=== PATIENT | male | born 1955 | race Caucasian/White ===

== ENCOUNTER 2017-02-12 19:33 | Inpatient (IN) | payer OTHER ==
[2017-02-12] MEDS ORDERED: ONDANSETRON 4 MG INJ IV (22:00)
[2017-02-12] MEDS ORDERED: ACETAMINOPHEN 325 MG TAB PO (22:00)
[2017-02-12] MEDS ORDERED: GLUCOSE GEL 15 GRAM TUBE PO ×2 (23:30)
[2017-02-12] MEDS ORDERED: DEXTROSE 50% 50 ML SYRINGE IV ×2 (23:30)
[2017-02-12] MEDS ORDERED: GLUCOSE GEL 15 GRAM TUBE BUCCAL (23:30)
[2017-02-12] MEDS ORDERED: GLUCAGON 1 MG INJ IM (23:30)
[2017-02-12] MEDS: SOD CHLORIDE 0.9% 1,000 ML IV (23:45)
[2017-02-12 23:53] LABS: HEMOGLOBIN A1C 7.6 % (0-5.9)
[2017-02-13] MEDS: ACCU-CHEK XX (01:44)
[2017-02-13 06:53] LABS: ADD MAN DIFF? NO
[2017-02-13 06:57] LABS: WHITE BLOOD COUNT 7.1 10^3/ul (4.8-10.8)
[2017-02-13 06:57] LABS: BASOPHILS % 0.4 % (0.0-2.0); EOSINOPHILS # 0.3 10^3/ul (0.0-0.5); EOSINOPHILS % 4.8 % (0.0-7.0); HEMOGLOBIN 12.4 g/dl (14.0-18.0); LYMPHOCYTES # 2.1 10^3/ul (0.8-2.9); LYMPHOCYTES % 29.6 % (15.0-51.0); MEAN CORPUSCULAR HEMOGLOBIN 30.6 pg (29.0-33.0); MEAN CORPUSCULAR HGB CONC 32.6 g/dl (32.0-37.0); MEAN CORPUSCULAR VOLUME 93.8 fl (82.0-101.0); MEAN PLATELET VOLUME 11.4 fl (7.4-10.4); MONOCYTE # 0.6 10^3/ul (0.3-0.9); MONOCYTES % 7.9 % (0.0-11.0); NEUTROPHILS % 57.2 % (39.0-77.0); PLATELET COUNT 139 10^3/UL (140-415); POSITIVE DIFF @See below; RED BLOOD COUNT 4.05 10^6/ul (4.70-6.10); RED CELL DISTRIBUTION WIDTH 12.6 % (11.5-14.5)
[2017-02-13] MEDS ORDERED: glipiZIDE (XL) 5 MG TAB PO (07:25)
[2017-02-13 07:27] LABS: ALANINE AMINOTRANSFERASE 42 IU/L (13-69); ALBUMIN 3.8 g/dl (3.3-4.9); ALBUMIN/GLOBULIN RATIO 1.22; ALKALINE PHOSPHATASE 71 IU/L (42-121); ANION GAP 19 (8-16); ASPARTATE AMINO TRANSFERASE 28 IU/L (15-46); BILIRUBIN,INDIRECT 0.4 mg/dl (0-1.1); BILIRUBIN,TOTAL 0.4 mg/dl (0.2-1.3); BLOOD UREA NITROGEN 35 mg/dl (7-20); CALCIUM 9.3 mg/dl (8.4-10.2); CARBON DIOXIDE 25 mmol/L (21-31); CHLORIDE 104 mmol/L (97-110); CREATININE 1.81 mg/dl (0.61-1.24); GLUCOSE 175 mg/dl (70-220); POTASSIUM 5.2 mmol/L (3.5-5.1); SODIUM 143 mmol/L (135-144); TOTAL PROTEIN 6.9 g/dl (6.1-8.1)
[2017-02-13] MEDS ORDERED: metFORMIN (XR) 500 MG TAB PO (07:55)
[2017-02-13] MEDS ORDERED: NON-FORMULARY/PATIENT OWN MED (Meloxicam* 15 MG) PO (09:00)
[2017-02-13] MEDS: PIOGLITAZONE 30 MG TAB PO (09:26)
[2017-02-13] MEDS: GABAPENTIN 300 MG CAP PO ×2 (09:27→13:03)
[2017-02-13] MEDS: traMADol 50 MG TAB PO ×2 (09:32→20:15)
[2017-02-13] MEDS: INSULIN ASPART [NOVOLOG] 3 ML PEN SC ×4 (09:42→20:30)
[2017-02-13] MEDS ORDERED: MECLIZINE 12.5 MG TAB PO (11:30)
[2017-02-13] MEDS: MELOXICAM 15 MG TAB PO (13:03)
[2017-02-13] MEDS: SOD CHLORIDE 0.9% 1,000 ML IV (13:04)
[2017-02-13 19:28] LABS: ADD UMIC NO; UR ASCORBIC ACID NEGATIVE (NEGATIVE); UR BILIRUBIN (Dip) NEGATIVE (NEGATIVE); UR BLOOD (Dip) NEGATIVE (NEGATIVE); UR CLARITY CLEAR (CLEAR); UR COLOR YELLOW (YELLOW); UR GLUCOSE (Dip) NEGATIVE (NEGATIVE); UR KETONES (Dip) NEGATIVE (NEGATIVE); UR LEUKOCYTE ESTERASE (Dip) NEGATIVE Leu/ul (NEGATIVE); UR NITRITE (Dip) NEGATIVE (NEGATIVE); UR SPECIFIC GRAVITY (Dip) 1.011 (1.003-1.030); UR TOTAL PROTEIN (Dip) NEGATIVE (NEGATIVE); UR UROBILINOGEN (Dip) NEGATIVE (NEGATIVE)
[2017-02-13 19:46] LABS: CREATININE,URINE RANDOM 48.17 mg/dl (20-370)
[2017-02-13 19:46] LABS: SODIUM,URINE RANDOM 126 mmol/L (30-90)
[2017-02-13] MEDS: DULOXETINE 30 MG CAP DR PO (20:14)
[2017-02-13] MEDS: AMITRIPTYLINE 25 MG TAB PO (20:15)
[2017-02-13] MEDS: INSULIN DETEMIR [LEVEMIR] 3ML CART SC (20:30)
[2017-02-13] MEDS ORDERED: MELATONIN 6 MG PO (21:00)
[2017-02-14] MEDS: ACCU-CHEK XX (02:36)
[2017-02-14] MEDS: SOD CHLORIDE 0.9% 1,000 ML IV (02:45)
[2017-02-14] MEDS: INSULIN ASPART [NOVOLOG] 3 ML PEN SC ×4 (07:55→21:00)
[2017-02-14] MEDS: PIOGLITAZONE 30 MG TAB PO (08:18)
[2017-02-14] MEDS: traMADol 50 MG TAB PO ×2 (08:19→21:26)
[2017-02-14 08:35] LABS: ANION GAP 13 (8-16); BLOOD UREA NITROGEN 25 mg/dl (7-20); CALCIUM 8.8 mg/dl (8.4-10.2); CARBON DIOXIDE 28 mmol/L (21-31); CHLORIDE 105 mmol/L (97-110); CREATININE 1.14 mg/dl (0.61-1.24); GLUCOSE 99 mg/dl (70-220); POTASSIUM 5.6 mmol/L (3.5-5.1); SODIUM 140 mmol/L (135-144)
[2017-02-14] MEDS: NA POLYST SULFON 15 GM/60 ML BTL PO (14:18)
[2017-02-14] MEDS: DULOXETINE 30 MG CAP DR PO (21:23)
[2017-02-14] MEDS: AMITRIPTYLINE 25 MG TAB PO (21:24)
[2017-02-14] MEDS: INSULIN DETEMIR [LEVEMIR] 3ML CART SC (21:32)
[2017-02-15] MEDS: ACCU-CHEK XX (02:00)
[2017-02-15] MEDS: INSULIN ASPART [NOVOLOG] 3 ML PEN SC ×2 (07:55→11:50)
[2017-02-15] MEDS: PIOGLITAZONE 30 MG TAB PO (08:50)
[2017-02-15] MEDS: traMADol 50 MG TAB PO (08:51)
[2017-02-15] MEDS: INFLUENZA VIRUS VACCINE 0.5 ML (DISPENSING) IM* (08:56)
[2017-02-15 09:27] LABS: ADD MAN DIFF? NO
[2017-02-15 09:30] LABS: BASOPHIL # 0.1 10^3/ul (0.0-0.1); BASOPHILS % 0.8 % (0.0-2.0); EOSINOPHILS # 0.3 10^3/ul (0.0-0.5); HEMATOCRIT 41.2 % (42.0-52.0); HEMOGLOBIN 13.7 g/dl (14.0-18.0); LYMPHOCYTES # 1.9 10^3/ul (0.8-2.9); MEAN CORPUSCULAR HEMOGLOBIN 30.5 pg (29.0-33.0); MEAN CORPUSCULAR HGB CONC 33.3 g/dl (32.0-37.0); MEAN CORPUSCULAR VOLUME 91.8 fl (82.0-101.0); MEAN PLATELET VOLUME 11.7 fl (7.4-10.4); MONOCYTE # 0.5 10^3/ul (0.3-0.9); MONOCYTES % 9.1 % (0.0-11.0); NEUTROPHIL # 3.1 10^3/ul (1.6-7.5); NEUTROPHILS % 52.8 % (39.0-77.0); PLATELET COUNT 136 10^3/UL (140-415); POSITIVE DIFF @See below; RED BLOOD COUNT 4.49 10^6/ul (4.70-6.10); RED CELL DISTRIBUTION WIDTH 12.6 % (11.5-14.5)
[2017-02-15 10:03] LABS: ANION GAP 16 (8-16); BLOOD UREA NITROGEN 20 mg/dl (7-20); CALCIUM 9.1 mg/dl (8.4-10.2); CARBON DIOXIDE 27 mmol/L (21-31); CHLORIDE 100 mmol/L (97-110); GLUCOSE 95 mg/dl (70-220); POTASSIUM 4.3 mmol/L (3.5-5.1); SODIUM 139 mmol/L (135-144)
== END 2017-02-15 18:35 | disposition home or self-care (01) | DRG 684 ==
LOC: TEL 19:33
PROVIDERS: Internal Medicine Nephrology
DX: N17.9 Acute kidney failure, unspecified (principal); E11.42 Type 2 diabetes mellitus with diabetic polyneuropathy; E11.65 Type 2 diabetes mellitus with hyperglycemia; N13.2 Hydronephrosis with renal and ureteral calculous obstruction; E66.9 Obesity, unspecified; Z68.34 Body mass index [BMI] 34.0-34.9, adult; D64.9 Anemia, unspecified; F32.9 Major depressive disorder, single episode, unspecified; G89.29 Other chronic pain; N20.0 Calculus of kidney
CPT/HCPCS: 74000; 74176; 76775; 80048; 80053; 81003; 82962; 83036; 84155; 84300; 85025; 90686